=== PATIENT | female | born 1970 | race Caucasian/White ===

== ENCOUNTER 2021-01-29 17:00 | Emergency (ER) | payer OTHER ==
[~2021-01-29] VITALS: Ht 160 cm; Wt 72.6 kg
--- NOTE | 2021-01-29 17:00 | NUR ---
PT PLACED IN BE 7. REPORT TO LORRAINE NAVARRETE
[2021-01-29 17:02] VITALS: BP_SYST 165
--- NOTE | 2021-01-29 17:05 | NUR ---
MD RUTLEDGE AT BEDSIDE ASSESSING PT.
--- NOTE | 2021-01-29 17:12 | NUR ---
RN ASSESSED PT AND PLACED ICE PACK ON LEFT HAND. PT HAD A HEAVY BATHROOM DOOR SLAM SHUT ON HER LEFT HAND. NO BLEEDING NOTED, SLIGHT ABRASION ON TOP OF LEFT HAND. SLIGHT SWELLING NOTED.
--- NOTE | 2021-01-29 17:48 | NUR ---
Patient given written and verbal discharge instructions and verbalizes understanding. ER MD discussed with patient the results and treatment provided. Patient in stable condition. ID arm band removed. . Patient educated on pain management and to follow up with PMD. Pain Scale 0/10. Opportunity for questions provided and answered. Medication side effect fact sheet provided.
--- NOTE | 2021-01-29 17:48 | NUR ---
X RAY WAS NEGATIVE ACCORDING TO MD RUTLEDGE. PT CAN BE PREPARED FOR DC HOME. PT WILL NEED ONE DAY OFF WORK TO RECOVER.
[2021-01-29 17:50] VITALS: BP_SYST 145
== END 2021-01-29 17:48 | disposition home or self-care (01) ==
LOC: SED 17:00
DX: S60.222A Contusion of left hand, initial encounter (principal); W22.8XXA Striking against or struck by other objects, initial encounter; Y93.89 Activity, other specified; Y92.89 Other specified places as the place of occurrence of the external cause; Y99.8 Other external cause status
CPT/HCPCS: 99283